=== PATIENT | male | born 1995 | race Caucasian/White ===

== ENCOUNTER 2018-08-26 14:25 | Emergency (ER) | payer OTHER ==
[~2018-08-26] VITALS: Ht 175.3 cm; Wt 70.9 kg
[2018-08-26 14:28] VITALS: BP 102/47
[2018-08-26] MEDS ORDERED: LIDOCAINE-MPF 1%, 5ML ONE (14:56)
[2018-08-26] MEDS ORDERED: LIDOCAINE 2%, 20ML SQ ONE (15:00)
--- NOTE | 2018-08-26 16:14 | NUR ---
Patient/Caregiver given discharge instructions and they have confirmed that they understand the instructions. Patient ambulatory with steady gait.
== END 2018-08-26 16:15 | disposition home or self-care (01) ==
LOC: ED 16:09
DX: S61.215A Laceration without foreign body of left ring finger without damage to nail, initial encounter (principal); W26.8XXA Contact with other sharp object(s), not elsewhere classified, initial encounter; Y93.89 Activity, other specified; Y92.009 Unspecified place in unspecified non-institutional (private) residence as the place of occurrence of the external cause; Y99.8 Other external cause status
CPT/HCPCS: 99283